=== PATIENT | female | born 1960 | race Two or more races ===

== ENCOUNTER 2024-09-03 20:35 | Emergency (ER) | payer BC ==
[~2024-09-03] VITALS: Ht 157.5 cm; Wt 72.6 kg
[2024-09-03] MEDS ORDERED: GLUMETZA500 MG (20:47)
[2024-09-03] MEDS ORDERED: MOUNJARO2.5 MG/0.5 (20:47)
[2024-09-03] MEDS ORDERED: LEVOTHYROXINE13 MCG (20:47)
[2024-09-03] MEDS ORDERED: LIPITOR40 M1 (20:47)
[2024-09-03] MEDS ORDERED: COZAAR25 MG (20:48)
[2024-09-03] MEDS ORDERED: KETOROLAC TROMETHAMINE 60 MG VIAL IM STA (21:47)
[2024-09-03] MEDS ORDERED: KETOROLAC TROMETHAMINE 60 MG VIAL IM ONE (22:35)
== END 2024-09-03 22:50 | disposition home or self-care (01) ==
LOC: ER 20:37
DX: M25.561 Pain in right knee (principal); I10 Essential (primary) hypertension; Z88.6 Allergy status to analgesic agent